=== PATIENT | male | born 1960 | race Caucasian/White ===

== ENCOUNTER 2021-06-19 17:21 | Inpatient (IN) | payer BC ==
[2021-06-19] MEDS ORDERED: Insulin Regular, Human 100 Units/ML 3 ML Vial SUBCUT ONE (21:31)
[2021-06-19] MEDS ORDERED: 50% Dextrose in Water 50 ML Syringe IVPUSH PRN (21:31)
[2021-06-19] MEDS ORDERED: Glucagon,Human Recombinant 1 MG Vial IM PRN (21:31)
--- NOTE | 2021-06-19 21:32 | EDM.PDOC ---
ED HPI GENERAL MEDICAL PROBLEM - General Chief Complaint: General Stated Complaint: FEVER,FATIGUE,COUGH Time Seen by Provider: 06/19/21 21:25 Source of Information: Reports: Patient History Limitations: Reports: No Limitations - History of Present Illness INITIAL COMMENTS - FREE TEXT/NARRATIVE: pt arrived feeling so weak he can hardley get in and out of bed. He has the sensation that he is not maintaining his o2. Onset: Gradual, Other (pt has been sick for 10 days. He also states his darlyn and some of his other family members. he is not immunized. ) Duration: Day(s):, Other (pt has been ill for about 10 days and definitely has contact with covid. ) Location: Reports: Chest, Other (pt is very sob. ) Worsens with: Reports: Breathing Associated Symptoms: Reports: Cough - Related Data Allergies Allergy/AdvReac Type Severity Reaction Status Date / Time No Known Allergies Allergy Verified 06/19/21 17:32 Home Meds: Home Meds Metoprolol Succinate 50 mg PO DAILY 06/19/21 [History] Pravastatin [Pravachol] 20 mg PO DAILY 06/19/21 [History] hydroCHLOROthiazide [Hydrochlorothiazide] 25 mg PO DAILY 06/19/21 [History] metFORMIN [Glucophage] 500 mg PO BIDMEALS 06/19/21 [History] Past Medical History HEENT History: Reports: Impaired Vision Cardiovascular History: Reports: Hypertension Endocrine/Metabolic History: Reports: Diabetes, Type II - Infectious Disease History Infectious Disease History: Reports: Chicken Pox Social & Family History - Tobacco Use Tobacco Use Status *Q: Never Tobacco User - Caffeine Use Caffeine Use: Reports: Coffee - Recreational Drug Use Recreational Drug Use: No ED ROS GENERAL - Review of Systems Review Of Systems: See Below Constitutional: Reports: Fever, Chills, Malaise, Weakness HEENT: Reports: Rhinitis Respiratory: Reports: Shortness of Breath Cardiovascular: Reports: No Symptoms Endocrine: Reports: No Symptoms GI/Abdominal: Reports: No Symptoms : Reports: No Symptoms Musculoskeletal: Reports: No Symptoms Skin: Reports: No Symptoms Neurological: Reports: Other ( slow to repond) Psychiatric: Reports: Depression ED EXAM, GENERAL - Physical Exam Exam: See Below Free Text/Narrative:: pt arrived weak and fatiqued. He has been ill for about 10 days. He has been alot more sob the last 2 days. Exam Limited By: No Limitations General Appearance: Alert, Anxious, Lethargic, Other (pt is slow to respond. ) Ears: Normal TMs Nose: Normal Inspection Throat/Mouth: Normal Inspection Head: Atraumatic Neck: Normal Inspection Respiratory/Chest: Decreased Breath Sounds, Other (pt has low o2 sats. ) Cardiovascular: Regular Rate, Rhythm, Tachycardia GI/Abdominal: Soft, Non-Tender (Male) Exam: Deferred Rectal (Males) Exam: Deferred Back Exam: Normal Inspection Extremities: Normal Inspection Neurological: Alert, Oriented, Normal Cognition Psychiatric: Flat Affect Course - Vital Signs Last Recorded V/S: Last Vital Signs Temp 36.3 C 06/19/21 17:27 Pulse 102 H 06/19/21 20:31 Resp 20 06/19/21 17:27 BP 158/90 H 06/19/21 20:31 Pulse Ox 87 L 06/19/21 20:31 - Orders/Labs/Meds Orders: Active Orders 24 hr Category Date Time Status Chest 1V Frontal [CR] Stat Exams 06/19/21 18:35 Taken ABG [BLOOD GAS ARTERIAL] [BG] Stat Lab 06/19/21 21:24 Ordered UA W/MICROSCOPIC [URIN] Urgent Lab 06/19/21 18:33 Ordered Labs: Laboratory Tests 06/19/21 06/19/21 06/19/21 Range/Units 17:48 18:47 18:47 WBC 5.1 (4.5-11.0) K/uL RBC 5.33 (4.30-5.90) M/uL Hgb 16.8 H (12.0-15.0) g/dL Hct 50.4 (40.0-54.0) % MCV 95 (80-98) fL MCH 32 H (27-31) pg MCHC 33 (32-36) % Plt Count 174 (150-400) K/uL Add Manual Diff Yes Neutrophils % (Manual) 76 H (36-66) % Lymphocytes % (Manual) 22 L (24-44) % Monocytes % (Manual) 2 (2-6) % Atypical Lymphocytes Few D-Dimer, Quantitative (0.0-500.0) ng/mL Sodium 145 (140-148) mmol/L Potassium 3.8 (3.6-5.2) mmol/L Chloride 102 (100-108) mmol/L Carbon Dioxide 17 L (21-32) mmol/L Anion Gap 29.8 H (5.0-14.0) mmol/L BUN 47 H (7-18) mg/dL Creatinine 1.5 H (0.8-1.3) mg/dL Est Cr Clr Drug Dosing 53.40 mL/min Estimated GFR (MDRD) 48 L (>60) Glucose 525 H* (74-106) mg/dL Calcium 8.6 (8.5-10.1) mg/dL Total Bilirubin 0.9 (0.2-1.0) mg/dL AST 61 H (15-37) U/L ALT 90 H (12-78) U/L Alkaline Phosphatase 76 (46-116) U/L C-Reactive Protein (0.0-0.3) mg/dL Total Protein 7.3 (6.4-8.2) g/dL Albumin 3.1 L (3.4-5.0) g/dL Globulin 4.2 H (2.3-3.5) g/dL Albumin/Globulin Ratio 0.7 L (1.2-2.2) SARS-CoV-2 RNA (ELI) Positive H (NEGATIVE) 06/19/21 06/19/21 Range/Units 18:47 18:47 WBC (4.5-11.0) K/uL RBC (4.30-5.90) M/uL Hgb (12.0-15.0) g/dL Hct (40.0-54.0) % MCV (80-98) fL MCH (27-31) pg MCHC (32-36) % Plt Count (150-400) K/uL Add Manual Diff Neutrophils % (Manual) (36-66) % Lymphocytes % (Manual) (24-44) % Monocytes % (Manual) (2-6) % Atypical Lymphocytes D-Dimer, Quantitative 1578.25 H (0.0-500.0) ng/mL Sodium (140-148) mmol/L Potassium (3.6-5.2) mmol/L Chloride (100-108) mmol/L Carbon Dioxide (21-32) mmol/L Anion Gap (5.0-14.0) mmol/L BUN (7-18) mg/dL Creatinine (0.8-1.3) mg/dL Est Cr Clr Drug Dosing mL/min Estimated GFR (MDRD) (>60) Glucose (74-106) mg/dL Calcium (8.5-10.1) mg/dL Total Bilirubin (0.2-1.0) mg/dL AST (15-37) U/L ALT (12-78) U/L Alkaline Phosphatase (46-116) U/L C-Reactive Protein 8.67 H (0.0-0.3) mg/dL Total Protein (6.4-8.2) g/dL Albumin (3.4-5.0) g/dL Globulin (2.3-3.5) g/dL Albumin/Globulin Ratio (1.2-2.2) SARS-CoV-2 RNA (ELI) (NEGATIVE) - Re-Assessments/Exams Free Text/Narrative Re-Assessment/Exam: 06/19/21 21:35 chest xray shows typical covid infiltrates, o2 sats are in the mid 80s. He has elvated ddimer, his crp is high. Departure - Departure Time of Disposition: 21:39 Disposition: Admitted As Inpatient 65 Condition: Fair Clinical Impression: COVID-19, Viral pneumonia, Low O2 saturation - Discharge Information Referrals: PCP,Unknown [Primary Care Provider] - Sepsis Event Note (ED) - Evaluation Sepsis Screening Result: No Definite Risk - Focused Exam Vital Signs: Vital Signs Temp Pulse Resp BP Pulse Ox 06/19/21 20:31 102 H 158/90 H 87 L 06/19/21 18:48 91 152/91 H 91 L 06/19/21 17:27 36.3 C 91 20 167/99 H 88 L - My Orders Last 24 Hours: My Active Orders 06/19/21 18:33 UA W/MICROSCOPIC [URIN] Urgent 06/19/21 18:35 Chest 1V Frontal [CR] Stat 06/19/21 21:24 ABG [BLOOD GAS ARTERIAL] [BG] Stat - Assessment/Plan Last 24 Hours: My Active Orders 06/19/21 18:33 UA W/MICROSCOPIC [URIN] Urgent 06/19/21 18:35 Chest 1V Frontal [CR] Stat 06/19/21 21:24 ABG [BLOOD GAS ARTERIAL] [BG] Stat
[2021-06-19] MEDS ORDERED: Sodium Chloride 0.9% 10 ML Syringe FLUSH PRN (21:36)
[2021-06-19] MEDS ORDERED: Dexamethasone 2 MG Tab PO ONE (21:57)
[2021-06-19] MEDS ORDERED: REMDESIVIR 200 MG in Sodium Chloride 0.9% 250 ML IV ONE (21:57)
[2021-06-19] MEDS ORDERED: cefTRIAXone 2 GM in Sodium Chloride 0.9% 100 ML IV SCH (23:00)
[2021-06-19] MEDS ORDERED: Acetaminophen 325 MG Tab PO PRN (23:38)
[2021-06-19] MEDS ORDERED: Albuterol 8 GM Inhaler INH PRN (23:38)
[2021-06-19] MEDS ORDERED: Ondansetron 4 MG/2 ML SDV IV PRN (23:38)
[2021-06-19] MEDS ORDERED: Enoxaparin 40 MG/0.4 ML Syringe SUBCUT SCH (23:38)
[2021-06-19] MEDS ORDERED: Docusate Sodium 100 MG Cap PO PRN (23:38)
[2021-06-19] MEDS ORDERED: Albuterol/Ipratropium 4 GM Inhalation Spray INH PRN (23:38)
[2021-06-19] MEDS ORDERED: Morphine 2 MG/ML SYRINGE IVPUSH PRN (23:38)
[2021-06-19] MEDS ORDERED: Codeine/guaiFENesin 10-100 MG/5 ML Syrup 5 ML Cup PO PRN (23:38)
[2021-06-19] MEDS ORDERED: Ondansetron 4 MG Tab.DIS PO PRN (23:38)
[2021-06-19] MEDS ORDERED: oxyCODONE 5 MG Tab PO PRN (23:38)
[2021-06-20] MEDS ORDERED: REMDESIVIR 100 MG ONE (00:22)
[2021-06-20] MEDS ORDERED: LORazepam 2 MG/ML SDV IVPUSH ONE (02:24)
[2021-06-20] MEDS ORDERED: Lidocaine 2% Jelly 10 ML Urojet MUCMEM ONE (06:01)
[2021-06-20] MEDS ORDERED: Insulin Lispro 100 Unit/ML 3 ML KwikPen SUBCUT SCH (07:00)
--- NOTE | 2021-06-20 07:15 | PCM.HP.2 ---
H&P History of Present Illness - General Date of Service: 06/19/21 Admit Problem/Dx: Admission Diagnosis/Problem Admission Diagnosis/Problem Pneumonia Source of Information: Patient, Provider, RN History Limitations: Reports: Respiratory Distress - History of Present Illness Initial Comments - Free Text/Narative: chief complaint; complications of Covid-19 This is a 60 year old male present to the ER with , reports he is from [place], [place]., was diagnosed with Covid-19, he and his who also has Covid-[place]. Has symptoms for the past 10 days- the last 5 days having worsen cough, shortness of breath, nausea, vomiting, bone and muscle pain. Er note copy pt arrived feeling so weak he can hardley get in and out of bed. He has the sensation that he is not maintaining his o2. Onset: Gradual, Other (pt has been sick for 10 days. He also states his is ill and some of his other family members. he is not immunized. ) Duration: Day(s):, Other (pt has been ill for about 10 days and definitely has contact with covid. ) Location: Reports: Chest, Other (pt is very sob. ) Worsens with: Reports: Breathing Associated Symptoms: Reports: Cough 06/19/21 21:35 chest x-ray shows typical covid infiltrates, o2 sats are in the mid 80s. He has elevated d dimer, his crp is high. Onset of Symptoms: Reports: Gradual Symptom Onset Date: 06/10/21 Duration of Symptoms: Reports: Day(s): (10), Getting Worse Location: Reports: Generalized Severity: Severe Improves with: Reports: None Worsens with: Reports: None Context: Reports: Sick Contact (Covid-19 exposure) Associated Symptoms: Reports: Cough, Diaphoresis, Fever/Chills, Headaches, Loss of Appetite, Malaise, Nausea/Vomiting, Shortness of Breath, Weakness - Related Data Allergies/Adverse Reactions: Allergies Allergy/AdvReac Type Severity Reaction Status Date / Time No Known Allergies Allergy Verified 06/19/21 17:32 Home Medications: Home Meds Metoprolol Succinate 50 mg PO DAILY 06/19/21 [History] Pravastatin [Pravachol] 20 mg PO DAILY 06/19/21 [History] hydroCHLOROthiazide [Hydrochlorothiazide] 25 mg PO DAILY 06/19/21 [History] metFORMIN [Glucophage] 500 mg PO BIDMEALS 06/19/21 [History] Past Medical History HEENT History: Reports: Impaired Vision Cardiovascular History: Reports: Hypertension Endocrine/Metabolic History: Reports: Diabetes, Type II - Infectious Disease History Infectious Disease History: Reports: Chicken Pox - Past Surgical History HEENT Surgical History: Reports: None Cardiovascular Surgical History: Reports: None Social & Family History - Family History Family Medical History: No Pertinent Family History - Tobacco Use Tobacco Use Status *Q: Never Tobacco User - Caffeine Use Caffeine Use: Reports: Coffee - Recreational Drug Use Recreational Drug Use: No - Living Situation & Occupation Living situation: Reports: (lives in [facility] with his , has a [place] cabin in [place], [place].) H&P Review of Systems - Review of Systems: Review Of Systems: See Below General: Reports: Fever, Chills, Malaise, Weakness, Fatigue, Night Sweats, Decreased Appetite, Weight Loss HEENT: Reports: Headaches Pulmonary: Reports: Shortness of Breath, Pleuritic Chest Pain, Cough, Sputum Cardiovascular: Reports: Dyspnea on Exertion Gastrointestinal: Reports: Anorexia, Decreased Appetite, Nausea, Vomiting Genitourinary: Reports: No Symptoms Musculoskeletal: Reports: Muscle Pain, Muscle Stiffness Skin: Reports: No Symptoms Psychiatric: Reports: No Symptoms Neurological: Reports: Headache Hematologic/Lymphatic: Reports: No Symptoms Immunologic: Reports: No Symptoms Exam - Exam Exam: See Below - Vital Signs Vital Signs: Last Vital Signs Temp 97.4 F 06/19/21 17:27 Pulse 118 H 06/20/21 02:54 Resp 36 H 06/20/21 02:54 BP 123/69 06/20/21 02:54 Pulse Ox 91 L 06/20/21 07:04 Weight: 259 lb 15.999 oz - Exam Quality Assessment: Supplemental Oxygen, DVT Prophylaxis General: Alert, Oriented, Cooperative, Severe Distress, Lethargic (profound weakness), Other (Alert, Anxious, Lethargic, Other (pt is slow to respond. )) HEENT: PERRLA, Conjunctiva Clear, EOMI, Hearing Intact, Mucosa Moist & [place]: Supple, Trachea Midline Lungs: Decreased Breath Sounds (no wheezing, rhonchi or crackles noted. breath sounds dimished). No: Normal Respiratory Effort (mild distress. able to speak in partial sentences.) Cardiovascular: Regular Rhythm, Normal S1, Normal S2, Tachycardia GI/Abdominal Exam: Normal Bowel Sounds, Soft, Non-Tender (Male) Exam: Deferred Rectal (Males) Exam: Deferred Back Exam: Normal Inspection, Full Range of Motion Extremities: Normal Inspection, Normal Range of Motion, Non-Tender, No Pedal Randal ma, Normal Capillary Refill Peripheral Pulses: 2+: Radial (L), Radial (R) Skin: Warm, Dry, Intact Neurological: Strength Equal Bilateral Neuro Extensive - Mental Status: Normal Cognition, Memory Intact Neuro Extensive - Motor, Sensory, Reflexes: Motor/Sensory Deficits (very weak, difficult to stand due to weakness) Psychiatric: Alert, Anxious. No: Normal Affect (flat ) - Patient Data Lab Results Last 24 hrs: Laboratory Results - last 24 hr 06/19/21 06/19/21 06/19/21 Range/Units 17:48 18:45 18:45 WBC (4.5-11.0) K/uL RBC (4.30-5.90) M/uL Hgb (12.0-15.0) g/dL Hct (40.0-54.0) % MCV (80-98) fL MCH (27-31) pg MCHC (32-36) % Plt Count (150-400) K/uL Add Manual Diff Neutrophils % (Manual) (36-66) % Lymphocytes % (Manual) (24-44) % Monocytes % (Manual) (2-6) % Atypical Lymphocytes D-Dimer, Quantitative (0.0-500.0) ng/mL Puncture Site ABG pH (7.350-7.450) ABG pCO2 (35.0-42.0) mmHg ABG pO2 (75.0-100.0) mmHg ABG HCO3 (22.0-26.0) mmol/L ABG Total CO2 (23.0-27.0) mmol/L ABG O2 Saturation (95.0-98.0) % ABG O2 Content (15.0-23.0) %vol ABG Base Excess mm/L ABG Hemoglobin (13.5-18.0) g/dL ABG Oxyhemoglobin % ABG Carboxyhemoglobin (0.0-1.6) % ABG Methemoglobin % Derek Test O2 Delivery Device Sodium (140-148) mmol/L Potassium (3.6-5.2) mmol/L Chloride (100-108) mmol/L Carbon Dioxide (21-32) mmol/L Anion Gap (5.0-14.0) mmol/L BUN (7-18) mg/dL Creatinine (0.8-1.3) mg/dL Est Cr Clr Drug Dosing mL/min Estimated GFR (MDRD) (>60) Glucose (74-106) mg/dL Lactic Acid (0.4-2.0) mmol/L Calcium (8.5-10.1) mg/dL Total Bilirubin 0.9 (0.2-1.0) mg/dL Direct Bilirubin 0.35 H (0.0-0.2) mg/dL Indirect Bilirubin 0.55 AST 64 H (15-37) U/L ALT 94 H (12-78) U/L Alkaline Phosphatase 78 (46-116) U/L C-Reactive Protein (0.0-0.3) mg/dL Total Protein 7.4 (6.4-8.2) g/dL Albumin 3.1 L (3.4-5.0) g/dL Globulin 4.3 H (2.3-3.5) g/dL Albumin/Globulin Ratio 0.7 L (1.2-2.2) Procalcitonin 0.59 ng/mL Urine Color (YELLOW) Urine Appearance (CLEAR) Urine pH (5.0-8.0) Ur Specific Richardson (1.008-1.030) Urine Protein (NEGATIVE) mg/dL Urine Glucose (UA) (NEGATIVE) mg/dL Urine Ketones (NEGATIVE) mg/dL Urine Occult Blood (NEGATIVE) Urine Nitrite (NEGATIVE) Urine Bilirubin (NEGATIVE) Urine Urobilinogen (0.2-1.0) EU/dL Ur Leukocyte Esterase (NEGATIVE) Urine RBC (0-5) Urine WBC (0-5) Ur Epithelial Cells Amorphous Sediment Urine Bacteria Urine Mucus SARS-CoV-2 RNA (ELI) Positive H (NEGATIVE) 06/19/21 06/19/21 06/19/21 Range/Units 18:47 18:47 18:47 WBC 5.1 (4.5-11.0) K/uL RBC 5.33 (4.30-5.90) M/uL Hgb 16.8 H (12.0-15.0) g/dL Hct 50.4 (40.0-54.0) % MCV 95 (80-98) fL MCH 32 H (27-31) pg MCHC 33 (32-36) % Plt Count 174 (150-400) K/uL Add Manual Diff Yes Neutrophils % (Manual) 76 H (36-66) % Lymphocytes % (Manual) 22 L (24-44) % Monocytes % (Manual) 2 (2-6) % Atypical Lymphocytes Few D-Dimer, Quantitative (0.0-500.0) ng/mL Puncture Site ABG pH (7.350-7.450) ABG pCO2 (35.0-42.0) mmHg ABG pO2 (75.0-100.0) mmHg ABG HCO3 (22.0-26.0) mmol/L ABG Total CO2 (23.0-27.0) mmol/L ABG O2 Saturation (95.0-98.0) % ABG O2 Content (15.0-23.0) %vol ABG Base Excess mm/L ABG Hemoglobin (13.5-18.0) g/dL ABG Oxyhemoglobin % ABG Carboxyhemoglobin (0.0-1.6) % ABG Methemoglobin % Derek Test O2 Delivery Device Sodium 145 (140-148) mmol/L Potassium 3.8 (3.6-5.2) mmol/L Chloride 102 (100-108) mmol/L Carbon Dioxide 17 L (21-32) mmol/L Anion Gap 29.8 H (5.0-14.0) mmol/L BUN 47 H (7-18) mg/dL Creatinine 1.5 H (0.8-1.3) mg/dL Est Cr Clr Drug Dosing 53.40 mL/min Estimated GFR (MDRD) 48 L (>60) Glucose 525 H* (74-106) mg/dL Lactic Acid (0.4-2.0) mmol/L Calcium 8.6 (8.5-10.1) mg/dL Total Bilirubin 0.9 (0.2-1.0) mg/dL Direct Bilirubin (0.0-0.2) mg/dL Indirect Bilirubin AST 61 H (15-37) U/L ALT 90 H (12-78) U/L Alkaline Phosphatase 76 (46-116) U/L C-Reactive Protein 8.67 H (0.0-0.3) mg/dL Total Protein 7.3 (6.4-8.2) g/dL Albumin 3.1 L (3.4-5.0) g/dL Globulin 4.2 H (2.3-3.5) g/dL Albumin/Globulin Ratio 0.7 L (1.2-2.2) Procalcitonin ng/mL Urine Color (YELLOW) Urine Appearance (CLEAR) Urine pH (5.0-8.0) Ur Specific Richardson (1.008-1.030) Urine Protein (NEGATIVE) mg/dL Urine Glucose (UA) (NEGATIVE) mg/dL Urine Ketones (NEGATIVE) mg/dL Urine Occult Blood (NEGATIVE) Urine Nitrite (NEGATIVE) Urine Bilirubin (NEGATIVE) Urine Urobilinogen (0.2-1.0) EU/dL Ur Leukocyte Esterase (NEGATIVE) Urine RBC (0-5) Urine WBC (0-5) Ur Epithelial Cells Amorphous Sediment Urine Bacteria Urine Mucus SARS-CoV-2 RNA (ELI) (NEGATIVE) 06/19/21 06/19/21 06/19/21 Range/Units 18:47 21:05 21:45 WBC (4.5-11.0) K/uL RBC (4.30-5.90) M/uL Hgb (12.0-15.0) g/dL Hct (40.0-54.0) % MCV (80-98) fL MCH (27-31) pg MCHC (32-36) % Plt Count (150-400) K/uL Add Manual Diff Neutrophils % (Manual) (36-66) % Lymphocytes % (Manual) (24-44) % Monocytes % (Manual) (2-6) % Atypical Lymphocytes D-Dimer, Quantitative 1578.25 H (0.0-500.0) ng/mL Puncture Site ABG pH (7.350-7.450) ABG pCO2 (35.0-42.0) mmHg ABG pO2 (75.0-100.0) mmHg ABG HCO3 (22.0-26.0) mmol/L ABG Total CO2 (23.0-27.0) mmol/L ABG O2 Saturation (95.0-98.0) % ABG O2 Content (15.0-23.0) %vol ABG Base Excess mm/L ABG Hemoglobin (13.5-18.0) g/dL ABG Oxyhemoglobin % ABG Carboxyhemoglobin (0.0-1.6) % ABG Methemoglobin % Derek Test O2 Delivery Device Sodium (140-148) mmol/L Potassium (3.6-5.2) mmol/L Chloride (100-108) mmol/L Carbon Dioxide (21-32) mmol/L Anion Gap (5.0-14.0) mmol/L BUN (7-18) mg/dL Creatinine (0.8-1.3) mg/dL Est Cr Clr Drug Dosing mL/min Estimated GFR (MDRD) (>60) Glucose (74-106) mg/dL Lactic Acid 8.0 H (0.4-2.0) mmol/L Calcium (8.5-10.1) mg/dL Total Bilirubin (0.2-1.0) mg/dL Direct Bilirubin (0.0-0.2) mg/dL Indirect Bilirubin AST (15-37) U/L ALT (12-78) U/L Alkaline Phosphatase (46-116) U/L C-Reactive Protein (0.0-0.3) mg/dL Total Protein (6.4-8.2) g/dL Albumin (3.4-5.0) g/dL Globulin (2.3-3.5) g/dL Albumin/Globulin Ratio (1.2-2.2) Procalcitonin ng/mL Urine Color Yellow (YELLOW) Urine Appearance Clear (CLEAR) Urine pH 5.5 (5.0-8.0) Ur Specific Richardson 1.020 (1.008-1.030) Urine Protein 100 H (NEGATIVE) mg/dL Urine Glucose (UA) 500 H (NEGATIVE) mg/dL Urine Ketones 80 H (NEGATIVE) mg/dL Urine Occult Blood Small H (NEGATIVE) Urine Nitrite Negative (NEGATIVE) Urine Bilirubin Small H (NEGATIVE) Urine Urobilinogen 0.2 (0.2-1.0) EU/dL Ur Leukocyte Esterase Negative (NEGATIVE) Urine RBC 0-5 (0-5) Urine WBC 0-5 (0-5) Ur Epithelial Cells Rare Amorphous Sediment Few Urine Bacteria Rare Urine Mucus Few SARS-CoV-2 RNA (ELI) (NEGATIVE) 06/19/21 06/20/21 Range/Units 21:50 01:25 WBC (4.5-11.0) K/uL RBC (4.30-5.90) M/uL Hgb (12.0-15.0) g/dL Hct (40.0-54.0) % MCV (80-98) fL MCH (27-31) pg MCHC (32-36) % Plt Count (150-400) K/uL Add Manual Diff Neutrophils % (Manual) (36-66) % Lymphocytes % (Manual) (24-44) % Monocytes % (Manual) (2-6) % Atypical Lymphocytes D-Dimer, Quantitative (0.0-500.0) ng/mL Puncture Site Lt radial ABG pH 7.437 (7.350-7.450) ABG pCO2 16.3 L* (35.0-42.0) mmHg ABG pO2 51.4 L (75.0-100.0) mmHg ABG HCO3 10.8 L (22.0-26.0) mmol/L ABG Total CO2 9.0 L (23.0-27.0) mmol/L ABG O2 Saturation 83.2 L (95.0-98.0) % ABG O2 Content 20.2 (15.0-23.0) %vol ABG Base Excess -10.4 mm/L ABG Hemoglobin 17.7 (13.5-18.0) g/dL ABG Oxyhemoglobin 81.6 % ABG Carboxyhemoglobin 1.1 (0.0-1.6) % ABG Methemoglobin 0.8 % Derek Test Pass O2 Delivery Device Hi flow nasal cannu Sodium (140-148) mmol/L Potassium (3.6-5.2) mmol/L Chloride (100-108) mmol/L Carbon Dioxide (21-32) mmol/L Anion Gap (5.0-14.0) mmol/L BUN (7-18) mg/dL Creatinine (0.8-1.3) mg/dL Est Cr Clr Drug Dosing mL/min Estimated GFR (MDRD) (>60) Glucose (74-106) mg/dL Lactic Acid 9.3 H (0.4-2.0) mmol/L Calcium (8.5-10.1) mg/dL Total Bilirubin (0.2-1.0) mg/dL Direct Bilirubin (0.0-0.2) mg/dL Indirect Bilirubin AST (15-37) U/L ALT (12-78) U/L Alkaline Phosphatase (46-116) U/L C-Reactive Protein (0.0-0.3) mg/dL Total Protein (6.4-8.2) g/dL Albumin (3.4-5.0) g/dL Globulin (2.3-3.5) g/dL Albumin/Globulin Ratio (1.2-2.2) Procalcitonin ng/mL Urine Color (YELLOW) Urine Appearance (CLEAR) Urine pH (5.0-8.0) Ur Specific Richardson (1.008-1.030) Urine Protein (NEGATIVE) mg/dL Urine Glucose (UA) (NEGATIVE) mg/dL Urine Ketones (NEGATIVE) mg/dL Urine Occult Blood (NEGATIVE) Urine Nitrite (NEGATIVE) Urine Bilirubin (NEGATIVE) Urine Urobilinogen (0.2-1.0) EU/dL Ur Leukocyte Esterase (NEGATIVE) Urine RBC (0-5) Urine WBC (0-5) Ur Epithelial Cells Amorphous Sediment Urine Bacteria Urine Mucus SARS-CoV-2 RNA (ELI) (NEGATIVE) Result Diagrams: 06/19/21 18:47 06/19/21 18:47 Sepsis Event Note - Evaluation Sepsis Screening Result: Severe Sepsis Risk - Focused Exam Vital Signs: Vital Signs Pulse Resp BP Pulse Ox Pulse Ox 06/20/21 07:04 91 L 06/20/21 02:54 118 H 36 H 123/69 86 L 06/20/21 02:23 85 L 06/20/21 01:52 86 L 06/20/21 01:47 86 L 06/20/21 00:23 88 L 06/20/21 00:20 88 L 06/20/21 00:13 131 H 40 H 184/99 H 85 L 06/19/21 23:47 127 H 40 H 87 L 06/19/21 22:25 121 H 146/99 H 85 L 06/19/21 21:26 124 H 26 H 151/98 H 86 L 06/19/21 20:31 102 H 158/90 H 87 L - Problem List (1) COVID-19 SNOMED Code(s): 823543740 ICD Code: U07.1 - COVID-19 Status: Acute Priority: High Current Visit: Yes (2) Pneumonia due to 2019 novel coronavirus SNOMED Code(s): 844882966663866818 ICD Code: U07.1 - COVID-19; J12.82 - PNEUMONIA DUE TO CORONAVIRUS DISEASE 2019 Status: Acute Priority: High Current Visit: Yes (3) Diabetes mellitus type 2, noninsulin dependent SNOMED Code(s): 66422674 ICD Code: E11.9 - TYPE 2 DIABETES MELLITUS WITHOUT COMPLICATIONS Status: Acute Priority: High Current Visit: Yes (4) Hypertension SNOMED Code(s): 14398015 ICD Code: I10 - ESSENTIAL (PRIMARY) HYPERTENSION Status: Acute Priority: High Current Visit: Yes Qualifiers: Hypertension type: primary hypertension Qualified Code(s): I10 - Essential (primary) hypertension Problem List Initiated/Reviewed/Updated: Yes Orders Last 24hrs: Active Orders 24 hr Category Date Time Status Bedrest Bathroom Privileges [RC] ASDIRECTED Care 06/19/21 23:38 Active Cardiac Monitoring [RC] CONTINUOUS Care 06/19/21 23:38 Active Diabetes Education [RC] Click to Edit Care 06/19/21 23:38 Active Cunningham Catheter Insertion [Insert Urinary Catheter] [OM. Care 06/20/21 06:15 O rdered PC] Q24H Intake and Output [RC] Q12H Care 06/19/21 23:38 Active Notify Provider Vital Signs [RC] ASDIRECTED Care 06/19/21 23:38 Active Notify Provider [RC] PRN Care 06/19/21 23:38 Active Oxygen Therapy [RC] PRN Care 06/19/21 23:38 Active Pulse Oximetry [RC] CONTINUOUS Care 06/19/21 23:38 Active RT Post Treatment Assessment [RC] Click to Edit Care 06/19/21 23:38 Active Urinary Catheter Assessment [RC] ASDIRECTED Care 06/20/21 06:02 Active VTE/DVT Education [RC] Per Unit Routine Care 06/19/21 23:38 Active Vital Signs [RC] Q4H Care 06/19/21 23:38 Active Consistent Carbohydrate Diet [DIET] Diet 06/19/21 Breakfast Active Chest 1V Frontal [CR] Stat Exams 06/19/21 18:35 Taken BASIC METABOLIC PANEL,BMP [CHEM] AM Lab 06/20/21 05:11 Ordered CBC WITH AUTO DIFF [HEME] AM Lab 06/20/21 05:11 Ordered CULTURE BLOOD [BC] Urgent Lab 06/19/21 22:40 Received CULTURE BLOOD [BC] Urgent Lab 06/19/21 22:45 Received GLUCOSE POC LAB TO COLLECT JPM [POC] QIDACANDBED Lab 06/20/21 07:30 Ordered GLUCOSE POC LAB TO COLLECT JPM [POC] QIDACANDBED Lab 06/20/21 11:30 Ordered GLUCOSE POC LAB TO COLLECT JPM [POC] QIDACANDBED Lab 06/20/21 16:30 Ordered GLUCOSE POC LAB TO COLLECT JPM [POC] QIDACANDBED Lab 06/20/21 21:00 Ordered GLUCOSE POC LAB TO COLLECT JPM [POC] QIDACANDBED Lab 06/21/21 07:30 Ordered GLUCOSE POC LAB TO COLLECT JPM [POC] QIDACANDBED Lab 06/21/21 11:30 Ordered GLUCOSE POC LAB TO COLLECT JPM [POC] QIDACANDBED Lab 06/21/21 16:30 Ordered GLUCOSE POC LAB TO COLLECT JPM [POC] QIDACANDBED Lab 06/21/21 21:00 Ordered GLUCOSE POC LAB TO COLLECT JPM [POC] QIDACANDBED Lab 06/22/21 07:30 Ordered GLUCOSE POC LAB TO COLLECT JPM [POC] QIDACANDBED Lab 06/22/21 11:30 Ordered GLUCOSE POC LAB TO COLLECT JPM [POC] QIDACANDBED Lab 06/22/21 16:30 Ordered GLUCOSE POC LAB TO COLLECT JPM [POC] QIDACANDBED Lab 06/22/21 21:00 Ordered GLUCOSE POC LAB TO COLLECT JPM [POC] QIDACANDBED Lab 06/23/21 07:30 Ordered GLUCOSE POC LAB TO COLLECT JPM [POC] QIDACANDBED Lab 06/23/21 11:30 Ordered GLUCOSE POC LAB TO COLLECT JPM [POC] QIDACANDBED Lab 06/23/21 16:30 Ordered GLUCOSE POC LAB TO COLLECT JPM [POC] QIDACANDBED Lab 06/23/21 21:00 Ordered GLUCOSE POC LAB TO COLLECT JPM [POC] QIDACANDBED Lab 06/24/21 07:30 Ordered GLUCOSE POC LAB TO COLLECT JPM [POC] QIDACANDBED Lab 06/24/21 11:30 Ordered GLUCOSE POC LAB TO COLLECT JPM [POC] QIDACANDBED Lab 06/24/21 16:30 Ordered GLUCOSE POC LAB TO COLLECT JPM [POC] QIDACANDBED Lab 06/24/21 21:00 Ordered GLUCOSE POC LAB TO COLLECT JPM [POC] QIDACANDBED Lab 06/25/21 07:30 Ordered GLUCOSE POC LAB TO COLLECT JPM [POC] QIDACANDBED Lab 06/25/21 11:30 Ordered GLUCOSE POC LAB TO COLLECT JPM [POC] QIDACANDBED Lab 06/25/21 16:30 Ordered GLUCOSE POC LAB TO COLLECT JPM [POC] QIDACANDBED Lab 06/25/21 21:00 Ordered GLUCOSE POC LAB TO COLLECT JPM [POC] QIDACANDBED Lab 06/26/21 07:30 Ordered GLUCOSE POC LAB TO COLLECT JPM [POC] QIDACANDBED Lab 06/26/21 11:30 Ordered GLUCOSE POC LAB TO COLLECT JPM [POC] QIDACANDBED Lab 06/26/21 16:30 Ordered GLUCOSE POC LAB TO COLLECT JPM [POC] QIDACANDBED Lab 06/26/21 21:00 Ordered GLUCOSE POC LAB TO COLLECT JPM [POC] QIDACANDBED Lab 06/27/21 07:30 Ordered GLUCOSE POC LAB TO COLLECT JPM [POC] QIDACANDBED Lab 06/27/21 11:30 Ordered GLUCOSE POC LAB TO COLLECT JPM [POC] QIDACANDBED Lab 06/27/21 16:30 Ordered Acetaminophen [TylenoL] Med 06/19/21 23:38 Active 650 mg PO Q4H PRN Albuterol [Ventolin HFA] Med 06/19/21 23:38 Active See Dose Instructions INH Q2H PRN Albuterol/Ipratropium [Combivent Respimat] Med 06/19/21 23:38 Active See Dose Instructions INH Q4H PRN Codeine/guaiFENesin [Robitussin AC] Med 06/19/21 23:38 Active 10 ml PO Q6H PRN Dextrose 50% in Water Med 06/19/21 21:31 Active 50 ml IVPUSH ASDIRECTED PRN Docusate Sodium [Colace] Med 06/19/21 23:38 Active 100 mg PO BID PRN Enoxaparin [Lovenox] Med 06/19/21 23:38 Active 40 mg SUBCUT BEDTIME Glucagon,Human Recombinant [GlucaGen] Med 06/19/21 21:31 Active 1 mg IM ASDIRECTED PRN Insulin Lispro [HumaLOG] Med 06/20/21 07:00 Active See Protocol SUBCUT QIDACANDBED Metoprolol Succinate [Toprol XL] Med 06/20/21 09:00 Active 50 mg PO DAILY Morphine Med 06/19/21 23:38 Active 2 mg IVPUSH Q2H PRN Ondansetron [Zofran ODT] Med 06/19/21 23:38 Active 4 mg PO Q6H PRN Ondansetron [Zofran] Med 06/19/21 23:38 Active 4 mg IV Q4H PRN Pantoprazole [ProTONIX IV] Med 06/20/21 09:00 Active 40 mg IV DAILY Remdesivir 100 mg Med 06/20/21 21:00 Active Sodium Chloride 0.9% [Normal Saline] 100 ml IV Q24H Sodium Chloride 0.9% [Saline Flush] Med 06/19/21 21:36 Active 10 ml FLUSH ASDIRECTED PRN cefTRIAXone [Rocephin] 2 gm Med 06/19/21 23:00 Active Sodium Chloride 0.9% [Normal Saline] 100 ml IV Q24H dexAMETHasone Med 06/20/21 09:00 Active 6 mg PO DAILY hydroCHLOROthiazide Med 06/20/21 09:00 Active 25 mg PO DAILY oxyCODONE Med 06/19/21 23:38 Active 5 mg PO Q4H PRN Blood Culture x2 Reflex Set [OM.PC] Urgent Oth 06/19/21 22:32 Ordered Saline Lock Insert [OM.PC] Routine Oth 06/19/21 21:36 Ordered Resuscitation Status Routine Resus Stat 06/19/21 23:02 Ordered Medication Orders Acetaminophen (Acetaminophen 325 Mg Tab) 650 mg PO Q4H PRN PRN Reason: Pain (Mild 1-3)/fever Albuterol (Albuterol 8 Gm Inhaler) 0 gm INH Q2H PRN PRN Reason: Shortness of Breath Albuterol/Ipratropium (Albuterol/Ipratropium 4 Gm Inhalation [place]) 0 gm INH Q4H PRN PRN Reason: Dyspnea Dexamethasone (Dexamethasone 2 Mg Tab) 6 mg PO DAILY RUSTAM Dextrose/Water (50% Dextrose In Water 50 Ml Syringe) 50 ml IVPUSH ASDIRECTED PRN PRN Reason: Hypoglycemia Docusate Sodium (Docusate Sodium 100 Mg Cap) 100 mg PO BID PRN PRN Reason: Constipation Enoxaparin Sodium (Enoxaparin 40 Mg/0.4 Ml Syringe) 40 mg SUBCUT BEDTIME [facility] Last Admin: 06/20/21 01:18 Dose: 40 mg Documented by: [id number] Glucagon (Glucagon,Human Recombinant 1 Mg Vial) 1 mg IM ASDIRECTED PRN PRN Reason: Hypoglycemia Guaifenesin/Codeine Phosphate (Codeine/Guaifenesin 10-100 Mg/5 Ml Syrup 5 Ml Cup) 10 ml PO Q6H PRN PRN Reason: Cough Hydrochlorothiazide (Hydrochlorothiazide 25 Mg Tab) 25 mg PO DAILY [facility] Ceftriaxone Sodium 2 gm/ (Sodium Chloride) 100 mls @ 100 mls/hr IV Q24H [facility] Last Admin: 06/19/21 23:57 Dose: 100 mls/hr Documented by: RIVAS Remdesivir 100 mg/ Sodium (Chloride) 100 mls @ 100 mls/hr IV Q24H [facility] Stop: 06/23/21 21:59 Insulin Human Lispro (Insulin Lispro 100 Unit/Ml 3 Ml Kwikpen) 0 unit SUBCUT QIDACANDBED [facility]; Protocol Metoprolol Succinate (Metoprolol Succinate 50 Mg Tab.Er) 50 mg PO DAILY [facility] Morphine Sulfate (Morphine 2 Mg/Ml Syringe) 2 mg IVPUSH Q2H PRN PRN Reason: Pain (severe 7-10) Ondansetron HCl (Ondansetron 4 Mg Tab.Dis) 4 mg PO Q6H PRN PRN Reason: Nausea able to take PO Ondansetron HCl (Ondansetron 4 Mg/2 Ml Sdv) 4 mg IV Q4H PRN PRN Reason: Nausea/Vomiting Oxycodone HCl (Oxycodone 5 Mg Tab) 5 mg PO Q4H PRN PRN Reason: Pain (moderate 4-6) Pantoprazole Sodium (Pantoprazole 40 Mg Vial) 40 mg IV DAILY [facility] Sodium Chloride (Sodium Chloride 0.9% 10 Ml Syringe) 10 ml FLUSH ASDIRECTED PRN PRN Reason: Keep Vein Open Assessment/Plan Comment:: ASSESSMENT AND PLAN - COVID-19 PNEUMONIA, DIABETES TYPE 2, HYPERTENSION chief complaint; complications of Covid-19 This is a 60 year old male present to the ER with , reports he is from [place], [place]., was diagnosed with Covid-19, he and his who also has Covid-[place]. Has symptoms for the past 10 days- the last 5 days having worsen cough, shortness of breath, nausea, vomiting, bone and muscle pain. Er note copy pt arrived feeling so weak he can hardley get in and out of bed. He has the sensation that he is not maintaining his o2. Onset: Gradual, Other (pt has been sick for 10 days. He also states his is ill and some of his other family members. he is not immunized. ) Duration: Day(s):, Other (pt has been ill for about 10 days and definitely has contact with covid. ) Location: Reports: Chest, Other (pt is very sob. ) Worsens with: Reports: Breathing Associated Symptoms: Reports: Cough 06/19/21 21:35 chest x-ray shows typical covid infiltrates, o2 sats are in the mid 80s. He has elevated d dimer 1578, lactic acid 8.0 Will admit for further care and treatment, Mr. Kurtz agrees with plan of care. COVID-19 pneumonia-complicated by hypoxia.weakness, nausea and vomiting. Lactic acid elevated will add antibiotic for bacterial coverage. -Covid precautions and isolation -Prone ventilation as possible -Dexamethasone 6 mg po daily- given IV Dexamethasone 6 mg in ER. -Lovenox 40 mg subcut. Every 24 hours -Albuterol inhaler 2 puffs every 4 hours as needed for shortness of breath -Atrovent inhaler 1 puff 4 times a day -IV Remdesivir 200mg give in ER, then IV Remdesivir 100 mg daily x 4 days -IV Rocephin 2 gram every 24 hours -oxygen therapy to keep oxygen saturation >90% -blood cultures x 2 -serial Lactic acid -Repeat labs including CRP and D-dimer in the morning Diabetes type 2-in ER blood glucose was 525, given insulin regular 10 units subcut. -POC blood glucose testing before meals -medium dose Sliding scale insulin -Hold Metformin Hypertension-blood pressure control acceptable- hold blood pressure medication for blood pressure systolic less than 110 -continue HCTZ 12.5- take 25 mg tablet daily -Metoprolol 50 mg po daily -monitor blood pressure every shift. Maintenance issues - - DVT prophylaxis - Lovenox 40 mg every 24 hours - GI prophylaxis -PPI - Nutrition - consistent carb diet - Cunningham catheter -for strict I & O and urinary retention CODE STATUS - FULL Admission justification -this patient will be admitted for inpatient services and is medically appropriate meeting medical necessity for inpatient admission as outlined in my documentation. I reasonably expect the patient will require inpatient services that span a period time over 2 midnights. I reasonably expect this patient to be discharged or transferred within 96 hours [facility]. Disposition -home with family Primary care physician - [facility] Hospital - Dr. Diaz M.D. - - Mortality Measure Prognosis:: Good
[2021-06-20] MEDS ORDERED: Insulin Regular, Human 100 Units/ML 3 ML Vial IVPUSH ONE (08:28)
[2021-06-20] MEDS ORDERED: Insulin Regular, Human 100 Units/ML 3 ML Vial SUBCUT ONE (08:48)
[2021-06-20] MEDS ORDERED: Hydrochlorothiazide 25 MG Tab PO SCH (09:00)
[2021-06-20] MEDS ORDERED: Metoprolol Succinate 50 MG Tab.ER PO SCH (09:00)
[2021-06-20] MEDS ORDERED: Dexamethasone 2 MG Tab PO SCH (09:00)
[2021-06-20] MEDS ORDERED: Pantoprazole 40 MG Vial IV SCH (09:00)
--- NOTE | 2021-06-20 09:08 | CR ---
CHEST: Portable 06/19/2021 8:37 PM CLINICAL HISTORY:SOB, Covid Positive COMPARISON:None FINDINGS: There are bilateral predominantly lower lobe infiltrates. Heart and pulmonary vascular are normal. Impression: Bilateral lower lobe pneumonias.
[2021-06-20] MEDS ORDERED: REMDESIVIR 100 MG in Sodium Chloride 0.9% 100 ML IV SCH (21:00)
[2021-06-20] MEDS ORDERED: cefTRIAXone 2 GM in Sodium Chloride 0.9% 100 ML IV SCH (22:00)
--- NOTE | 2021-06-25 10:17 | PCM.DCSUM1 ---
Discharge Summary - Hospital Course Free Text/Narrative:: Mr. Vargas is a 60-year-old male with past medical history significant for hypertension and type 2 diabetes mellitus who presented for hypoxia, weakness, nausea, and vomiting. He had been diagnosed with COVID-19 and been having symptoms for the past 10 days prior to admission. [place] but he is originally from [facility]. On arrival to the emergency department his vitals were temperature 36.3, pulse 102, respiratory rate 20, blood pressure 158/90, pulse ox 87 on room air. He had a chest x-ray done which showed patchy bilateral infiltrates typical of COVID-19. His D-dimer was elevated at 1578.25, and C-reactive protein elevated at 8.67. He was admitted to our hospital and started on dexamethasone, Lovenox, remdesivir, and Rocephin due to concern for jada mitten bacterial pneumonia. Overnight he did not improve at all and appeared to be deteriorating. We did not have an ICU bed available for him at this facility so we transferred him to [facility] to their Covid unit for increasing oxygenation needs. He was transferred to the care of Dr. Calabrese. Diagnosis: Stroke: No Modified Wagoner Scale: Slight Disable;Unable to Carry Out Prev Act.Able to Look After Affairs Modified Wagoner Scale Score: 2 - Discharge Data Discharge Date: 06/20/21 Discharge Disposition: DC/Tfer to Other 70 Condition: Fair - Referral to Home Health Primary Care Physician: PCP None - Discharge Plan Home Medications: Home Meds Metoprolol Succinate 50 mg PO DAILY 06/19/21 [History] Pravastatin [Pravachol] 20 mg PO DAILY 06/19/21 [History] hydroCHLOROthiazide [Hydrochlorothiazide] 25 mg PO DAILY 06/19/21 [History] metFORMIN [Glucophage] 500 mg PO BIDMEALS 06/19/21 [History] Forms: ED Department Discharge Referrals: PCP,Unknown [Ordering Only Provider] - - Discharge Summary/Plan Comment DC Time >30 min.: Yes Total # of Minutes for Discharge Time: 60 - General Info Date of Service: 06/20/21 Admission Dx/Problem (Free Text: Admission Diagnosis/Problem Admission Diagnosis/Problem Pneumonia Subjective Update: Mr. Vargas was having increasing oxygen needs. He was having tachycardia as well. - Review of Systems General: Reports: Fever, Weakness, Fatigue HEENT: Reports: No Symptoms Pulmonary: Reports: Shortness of Breath Cardiovascular: Reports: No Symptoms Gastrointestinal: Reports: No Symptoms Genitourinary: Reports: No Symptoms Musculoskeletal: Reports: No Symptoms Skin: Reports: No Symptoms Neurological: Reports: No Symptoms Psychiatric: Reports: No Symptoms - Patient Data Vitals - Most Recent: Last Vital Signs Temp 97.8 F 06/20/21 08:31 Pulse 126 H 06/20/21 09:28 Resp 30 H 06/20/21 08:31 BP 142/98 H 06/20/21 09:28 Pulse Ox 89 L 06/20/21 08:31 Weight - Most Recent: 259 lb 15.999 oz MILE Results - Last 24 hrs: Microbiology 06/19/21 22:40 Aerobic Blood Culture - Final Blood - Arm, Left NO GROWTH AFTER 5 DAYS Anaerobic Blood Culture - Final NO GROWTH AFTER 5 DAYS 06/19/21 22:45 Aerobic Blood Culture - Final Blood - Arm, Right NO GROWTH AFTER 5 DAYS Anaerobic Blood Culture - Final NO GROWTH AFTER 5 DAYS Med Orders - Current: Current Medications Discontinued Medications Acetaminophen (Acetaminophen 325 Mg Tab) 650 mg PO Q4H PRN PRN Reason: Pain (Mild 1-3)/fever Albuterol (Albuterol 8 Gm Inhaler) 0 gm INH Q2H PRN PRN Reason: Shortness of Breath Albuterol/Ipratropium (Albuterol/Ipratropium 4 Gm Inhalation [place]) 0 gm INH Q4H PRN PRN Reason: Dyspnea Dexamethasone (Dexamethasone 2 Mg Tab) 6 mg PO ONETIME ONE Stop: 06/19/21 21:58 Last Admin: 06/19/21 23:46 Dose: 6 mg Documented by: Dexamethasone (Dexamethasone 2 Mg Tab) 6 mg PO DAILY [facility] Last Admin: 06/20/21 09:28 Dose: 6 mg Documented by: Dextrose/Water (50% Dextrose In Water 50 Ml Syringe) 50 ml IVPUSH ASDIRECTED PRN PRN Reason: Hypoglycemia Docusate Sodium (Docusate Sodium 100 Mg Cap) 100 mg PO BID PRN PRN Reason: Constipation Enoxaparin Sodium (Enoxaparin 40 Mg/0.4 Ml Syringe) 40 mg SUBCUT BEDTIME [facility] Last Admin: 06/20/21 01:18 Dose: 40 mg Documented by: Glucagon (Glucagon,Human Recombinant 1 Mg Vial) 1 mg IM ASDIRECTED PRN PRN Reason: Hypoglycemia Guaifenesin/Codeine Phosphate (Codeine/Guaifenesin 10-100 Mg/5 Ml Syrup 5 Ml Cup) 10 ml PO Q6H PRN PRN Reason: Cough Hydrochlorothiazide (Hydrochlorothiazide 25 Mg Tab) 25 mg PO DAILY [facility] Remdesivir 200 mg/ Sodium (Chloride) 250 mls @ 250 mls/hr IV ONETIME ONE Stop: 06/19/21 21:58 Last Admin: 06/20/21 01:11 Dose: 250 mls/hr Documented by: Ceftriaxone Sodium 2 gm/ (Sodium Chloride) 100 mls @ 100 mls/hr IV Q24H [facility] Last Admin: 06/19/21 23:57 Dose: 100 mls/hr Documented by: Remdesivir 100 mg/ Sodium (Chloride) 100 mls @ 100 mls/hr IV Q24H [facility] Stop: 06/23/21 21:59 Remdesivir (Remdesivir) Confirm Administered Dose 100 mls @ as directed .ROUTE .STK-MED ONE Stop: 06/20/21 00:23 Last Admin: 06/20/21 00:53 Dose: Not Given Documented by: Ceftriaxone Sodium 2 gm/ (Sodium Chloride) 100 mls @ 100 mls/hr IV Q24H [facility] Insulin Human Lispro (Insulin Lispro 100 Unit/Ml 3 Ml Kwikpen) 0 unit SUBCUT QIDACANDBED [facility]; Protocol Last Admin: 06/20/21 08:52 Dose: 10 unit Documented by: Insulin Human Regular (Insulin Regular, Human 100 Units/Ml 3 Ml Vial) 10 unit SUBCUT ONETIME ONE Stop: 06/19/21 21:32 Last Admin: 06/19/21 23:40 Dose: 10 units Documented by: Insulin Human Regular (Insulin Regular, Human 100 Units/Ml 3 Ml Vial) 10 unit SUBCUT ONETIME ONE Stop: 06/20/21 08:49 Last Admin: 06/20/21 09:31 Dose: Not Given Documented by: Lidocaine HCl (Lidocaine 2% Jelly 10 Ml Urojet) 10 ml MUCMEM ONETIME ONE Stop: 06/20/21 06:02 Last Admin: 06/20/21 07:30 Dose: Not Given Documented by: Lorazepam (Lorazepam 2 Mg/Ml Sdv) 0.5 mg IVPUSH ONETIME ONE Stop: 06/20/21 02:25 Last Admin: 06/20/21 02:50 Dose: 0.5 mg Documented by: Metoprolol Succinate (Metoprolol Succinate 50 Mg Tab.Er) 50 mg PO DAILY [facility] Last Admin: 06/20/21 09:28 Dose: 50 mg Documented by: Morphine Sulfate (Morphine 2 Mg/Ml Syringe) 2 mg IVPUSH Q2H PRN PRN Reason: Pain (severe 7-10) Ondansetron HCl (Ondansetron 4 Mg Tab.Dis) 4 mg PO Q6H PRN PRN Reason: Nausea able to take PO Ondansetron HCl (Ondansetron 4 Mg/2 Ml Sdv) 4 mg IV Q4H PRN PRN Reason: Nausea/Vomiting Oxycodone HCl (Oxycodone 5 Mg Tab) 5 mg PO Q4H PRN PRN Reason: Pain (moderate 4-6) Pantoprazole Sodium (Pantoprazole 40 Mg Vial) 40 mg IV DAILY [facility] Sodium Chloride (Sodium Chloride 0.9% 10 Ml Syringe) 10 ml FLUSH ASDIRECTED PRN PRN Reason: Keep Vein Open - Exam General: Reports: Alert, Oriented HEENT: Reports: Pupils Equal, EOMI, Mucous Membr. Moist/[place] Neck: Reports: Supple Lungs: Reports: Decreased Breath Sounds Cardiovascular: Reports: Regular Rhythm, Tachycardia GI/Abdominal Exam: Normal Bowel Sounds, Soft, Non-Tender, No Organomegaly, No Distention, No Abnormal Bruit, No Mass, Pelvis Stable Extremities: Normal Inspection, Non-Tender, No Pedal Edema Skin: Reports: Warm, Dry, Intact Neurological: Reports: No New Focal Deficit Psy/Mental Status: Reports: Alert, Normal Affect, Normal Mood
== END 2021-06-20 09:35 | disposition other institution (70) | DRG 137 ==
LOC: JP.ED 17:21 → JP.2SS 22:58
PROVIDERS: ADMIT Internal Medicine; ATTEND Internal Medicine
PROC: XW033E5 Introduction of Remdesivir Anti-infective into Peripheral Vein, Percutaneous Approach, New Technology Group 5 (ICD-10-PCS; principal; 2021-06-19)
PROC: 3E0DX3Z Introduction of Anti-inflammatory into Mouth and Pharynx, External Approach (ICD-10-PCS; 2021-06-19)
PROC: 8E0ZXY6 Isolation (ICD-10-PCS; 2021-06-20)
DX: U07.1 COVID-19 (principal); J12.82 Pneumonia due to coronavirus disease 2019; H54.7 Unspecified visual loss; I10 Essential (primary) hypertension; E11.9 Type 2 diabetes mellitus without complications; Z79.84 Long term (current) use of oral hypoglycemic drugs; Z79.899 Other long term (current) drug therapy
CPT/HCPCS: 36415; 36600; 71045; 71045-26; 80048; 80053; 80076; 81001; 82150; 82803; 82947; 83605; 83690; 84145; 85025; 85379; 85610; 86140; 87040; 94762; 99285-25; A9270-GY; J0696; J1650; J1815; J1815-GY; J2060; J7050; J8540; U0002